=== PATIENT | female | born 1965 | race Caucasian/White ===

== ENCOUNTER 2018-07-23 14:53 | Emergency (ER) | payer OTHER ==
[~2018-07-23] VITALS: Ht 154.9 cm; Wt 127.0 kg
[2018-07-23 14:53] VITALS: BP 196/108; Ht 154.9 cm; Wt 127.0 kg
== END 2018-07-23 16:12 | disposition left against medical advice (07) ==
LOC: ED 14:53
DX: Z53.21 Procedure and treatment not carried out due to patient leaving prior to being seen by health care provider (principal)